=== PATIENT | male | born 1935 | race Caucasian/White ===

== ENCOUNTER 2023-11-27 08:17 | Emergency (ER) | payer SELFPAY ==
[2023-11-27] VITALS (7 sets, daily range): BP systolic 120–130; BP diastolic 67–79; PULSE 84; O2SAT 94; BMI 25.2
--- NOTE | 2023-11-27 08:42 | ED.GENMED ---
History of Present Illness
General
Chief Complaint: Weakness
Source: patient
Exam Limitations: none
Time Seen by Provider: 11/27/23 08:19
Nursing documentation reviewed up to this point in time: agreed with
Travel History
Have you had any contact with someone who has COVID-19?: No
Do you have any symptoms of coronavirus? Fever > 100 degrees, chills, cough, shortness of breath, sore throat, loss of taste or smell, muscle aches, or headache?: No
History of Present Illness
History of Present Illness:
88-year-old male discharged from [facility] yesterday UTI constipation at home, with some visiting nurses apparently was doing okay until this morning to try to get for the bathroom into the bed unable to get out of bed due to weakness EMS was
called, reportedly had a blood pressure of 90 systolic years blood pressure is normal he feels generally weak, states he has not been getting up very much for the past few days, is at the hospital no chest pain no shortness of breath no
headache no nausea no vomiting no dysuria frequency, tells me he is hungry,
Past History
Past History
ED Past Medical History: CAD and Seizures
ED Past Surgical History: Orthopedic
Social History
Tobacco: Non-smoker
Alcohol: None
Drug: None
Employment: Retired
Review of Systems
Review of Systems
All Other Systems: Not applicable
Constitutional: Reports fatigue
ABD/GI: Reports no symptoms
: Reports no symptoms
Musculoskeletal: Reports no symptoms
Neurological: Reports weakness
Phy Exam
Physical Exam
Physical Exam:
Physical Exam
General: no apparent distress, not acutely ill
Neck: No tongue bite
Heart: s1/s2 regular rate and rhythm, no murmur. equal radial pulses.
Lungs: no acute respiratory distress. clear bilaterally
Abdomen: Nontender
Neuro: alert and oriented. Able to lift his legs off the bed. Slightly stronger left greater than right
Skin: no rash
Psychiatric: well kept. interactive and cooperative
Extremities: no edema
Course
Orders/Labs/Results
Orders:
Orders
11/27/23 08:56
Case Management Consult ONCE
Case Management Consult: Discharge Planning
Physical Therapy Consult [Pt Eval And Treat] Urgent
Activity Level: Ambulate
Vital Signs
Initial and Last Documented VS:
Initial Vital Signs
Temp Pulse Resp BP Pulse Ox
97.9 F 84 16 130/79 96
11/27/23 08:33 11/27/23 08:33 11/27/23 08:33 11/27/23 08:33 11/27/23 08:33
Last Documented Vital Signs
Temp Pulse Resp BP Pulse Ox
97.9 F 84 16 130/79 96
11/27/23 08:33 11/27/23 08:33 11/27/23 08:33 11/27/23 08:33 11/27/23 08:33
MDM/Problems Addressed
Differential Diagnosis Includes:
Deconditioning fatigue, doubt significant lab abnormalities he was just discharged from the hospital yesterday,
MDM/Problems Addressed:
Fatigue
Chronic conditions affecting care: HTN and CAD
Acute Exacerbation and/or Progression of Chronic Illness: HTN and CAD
*Pulse Oximetry
Patient hypoxic: no
*Critical Care Note
Total Time (30-74mins, 75-104mins- exclusive of procedures): Not Applicable
Update Note
Update Note:
9 AM patient with stable vital signs, appears chronically ill, will ask case management and PT to see him, was just admitted for 6 or 7 days to an outside hospital, will not repeat his labs at this point
9:55 AM patient cleared by physical therapy
ED Attending Note
-
Portions of this chart may have been created with voice recognition software.� Occasional wrong word or��sound alike� substitutions may have occurred due to the inherent limitations of voice recognition software.
Discharge Plan
Departure
Patient Disposition: Home (Routine Discharge)
Date of Disposition: 11/27/23
Time of Disposition: 09:54
Patient with high blood pressure during this ER visit?: No
Condition: Good
Discharge Problem:
Weakness
Instructions: Generalized Weakness (DC)
Referrals:
Arben Pruitt DO [Family Provider] -
Interventions
Interventions:
*Risk Screen - Suicide Last Done: 11/27/23 09:41
*General Assessment Last Done: 11/27/23 08:34
*Neglect/Abuse Screening Last Done: 11/27/23 09:41
ED- Fall Risk Assessment Last Done: 11/27/23 09:44
*ED COVID-19 Vaccine History Last Done: 11/27/23 08:34
ED- Cardiac Assessment Last Done: 11/27/23 09:43
ED- Neurological Assessment Last Done: 11/27/23 09:42
ED- Pulmonary Assessment Last Done: 11/27/23 09:42
Discharge Date and Time
Print Language: GEORGIAN
--- NOTE | 2023-11-27 10:18 | CM ---
Addendum entered by Ny Harry RN 11/27/23 14:16:
CM sent updated Discharge Summary and script for VN/PT services to [facility].
Addendum entered by Ny Harry RN 11/27/23 12:55:
[facility] has accepted patient.
Addendum entered by Ny Harry RN 11/27/23 12:03:
CM received call back from CM at [facility]. They attempted to set up home care for patient through [facility], but patient was not satisfied with [facility] in the past and refused.
Addendum entered by Ny Harry RN 11/27/23 11:56:
[facility] spoke with [facility] at the [facility] patient's . [phone] ext [phone]. She confirmed that patient has [facility] PT/OT. CM will update [facility] to add RN.
Addendum entered by Ny Harry RN 11/27/23 11:28:
CM confirmed 1500 wheelchair van.
Addendum entered by Ny Harry RN 11/27/23 11:21:
[facility] spoke with Rosalind Trujillo patient's friend. she is unable to provide transportation. CM left message for Peg. Patient stated that her health is not 'good' and she is unable to pick him up. Patient provided the name of his WOODY Kessler [phone].
Original Note:
[facility] spoke with patient. Patient stated that he was at [facility] for several days. He stated that he had home care set up by case management, but did not remember the name. He then stated that he told [facility] to 'stick it'. He
provided the number for his nurse keycase assembler at the [facility], [facility] [phone] (he is team #4). CM left message for Estrada to confirm home care agency.
CM left message for Case Management at [facility] to confirm home care agency.
[2023-11-27] MEDS: TESSALON PERLES 100 MG PO (12:39)
== END 2023-11-27 15:20 | disposition home or self-care (01) ==
LOC: EMR 08:17
PROVIDERS: EMERGENCY PHYSICIAN Emergency Medicine; FAMILY PHYSICIAN Family Medicine
DX: R53.1 Weakness (principal); I25.10 Atherosclerotic heart disease of native coronary artery without angina pectoris; G40.909 Epilepsy, unspecified, not intractable, without status epilepticus; I10 Essential (primary) hypertension
CPT/HCPCS: 99283